=== PATIENT | male | born 1955 | race African-American/Black ===

== ENCOUNTER 2016-07-17 11:06 | Day surgery (SDC) | payer OTHER ==
[2016-07-15 14:19] LABS: HEMATOCRIT 43.6 % (40.0-51.0); HEMOGLOBIN 14.3 g/dL (13.6-17.8)
[2016-07-15 14:33] LABS: CALCIUM, SERUM 8.9 MG/DL (8.5-10.4); CHLORIDE, SERUM 103 MMOL/L (96-112); CO2 (CARBON DIOXIDE) 29 MMOL/L (24-34); CREATININE 0.81 MG/DL (0.70-1.30); GFR AFRICAN AMERICAN 112 ML/MIN (>=60); GFR NON AFRICAN AMERICAN 97 ML/MIN (>=60); GLUCOSE, SERUM 94 MG/DL (60-99); POTASSIUM, SERUM 4.3 MMOL/L (3.5-5.3); SODIUM, SERUM 141 MMOL/L (135-148)
[2016-07-15 14:35] LABS: BUN (BLOOD UREA NITROGEN) 9 MG/DL (6-23)
--- NOTE | ~2016-07-17 | OP ---
Record Of Operation [facility] [address] [place]. [address] NAME: AQUILES HECTOR : 57 STATUS : [facility]#: [id number] AGE: 61 ADM/REG DATE : 07/17/16 MR#: [id number] REPORT SERV DATE: 07/29/16 DICTATED BY: DATE: REPORT STATUS : Draft TRANSCRIBED BY: MODL DATE: 07/29/16 DATE OF PROCEDURE: 07/17/2016 PREOPERATIVE DIAGNOSIS: Painful hallux limitus/hallux abductovalgus deformity, right 1st MTPJ. POSTOPERATIVE DIAGNOSIS: Painful hallux limitus/hallux abductovalgus deformity, right 1st MTPJ. NAME OF OPERATION: Arthrodesis, right 1st MTPJ with Anuradha MTP fusion plate application. SURGEON: Lauri Cassidy DPM ANESTHESIA: General. HEMOSTASIS: Pneumatic ankle tourniquet. ESTIMATED BLOOD LOSS: Less than 5 mL. PROCEDURE IN DETAIL: The patient was brought to the operating room, placed on the operating table in supine position. The right foot was scrubbed, prepped, and draped in the usual aseptic manner. An Esmarch bandage utilized to exsanguinate the patient's right foot and the pneumatic ankle tourniquet inflated to 250 mmHg. Attention was then directed to the dorsal aspect of the 1st ray right foot where a 6 cm linear longitudinal incision was made. Incision deepened to the subcutaneous tissue using sharp and blunt dissection. Care was taken to identify and retract all vital neurovascular structures. A medial T-type capsulotomy was performed over the 1st MTPJ extending from the distal aspect of the proximal 1st phalanx to the mid shaft of the 1st metatarsal. The periosteum capsular structures were dissected free of their osseous attachments and reflected exposing the medial bony prominence of the 1st metatarsal at the operative site. Next, utilizing oscillating bone saw, the medial bony prominence was resected from the 1st metatarsal head and passed from the operative field. Attention then directed to the 1st interspace via the original skin incision. The subcutaneous tissues were dissected using tenotomy scissors. The adductor hallucis tendon was transected from its attachment to the base of the proximal phalanx laterally. The fibular sesamoid was freed of its osseous and capsular ligaments attachments distally, laterally, and proximally with excellent release of the lateral contracture on the hallux noted to be successfully executed. Attention was then directed to the head of the 1st metatarsal and the base of the proximal phalanx where the reamers and the Anuradha MTP fusion plate system was utilized to denude the bones from articular cartilage. Good bleeding subchondral bone was visualized after the utilization of the ramus on the base of the proximal phalanx and the head of the 1st metatarsal. The wound was then flushed with copious amounts of normal sterile saline. A K-wire was utilized to temporarily fixate the 1st MTPJ in a rectus position. Following standard AO principles and techniques over the Anuradha 1st MTP fusion plate system, the MTP fusion plate was placed over the 1st MTPJ with excellent compression noted. The placement of the MTP fusion plate was visualized under intraoperative fluoroscopy and noted to be in excellent position. The wound was then Record Of Operation [address] [place]. [address] NAME: AQUILES HECTOR : 57 STATUS : [facility] PAT#: [id number] AGE: 61 ADM/REG DATE : 07/17/16 MR#: [id number] REPORT SERV DATE: 07/29/16 DICTATED BY: DATE: REPORT STATUS : Draft TRANSCRIBED BY: MODL DATE: 07/29/16 flushed with copious amounts of normal sterile saline. The capsular tissue reapproximated and coapted utilizing 3-0 Vicryl. The subcutaneous tissues were reapproximated and coapted utilizing 4-0 Vicryl. The skin was reapproximated and coapted utilizing 5-0 Monocryl and 4- 0 nylon in horizontal mattress in simple interrupted suture technique. Postoperative block consisting of 20 mL of 0.5% Marcaine plain was injected around the operative site. The wound was then dressed with Xeroform gauze, ABD pad, 4x4s and 3-inch conform gauze wrap. Pneumatic ankle tourniquet was then deflated and a prompt hyperemic response noted to all digits of the right foot. An Tien wrap and walking boot was then applied. The patient tolerated the procedure and anesthesia well. He was transferred to recovery room. Vital signs stable and vascular status intact to all digits of the right foot. Following a period of postop monitoring, the patient discharged home on written and oral postop instructions. 1. Stay nonweightbearing on right foot with crutch assistance. 2. Ice and elevate right foot when at rest. 3. The patient to contact Dr. Cassidy for all postop followup care and if any problems arise. 4. The patient was prescribed antibiotics and pain medications. /THANH Lauri Cassidy DPM / [id number] CC: Lauri Cassidy DPM
[~2016-07-17 11:06] MED LIST: CARTIA PO; CARTIA XT300 MG/24 PO; COREG12 PO; DIL4TAB PO; GLUCPH PO; HCTZ25B PO; HYZAAR1 TAB PO; NEUR400 PO; OPANA ER40 MG PO; ULTRAM50 PO; VASOTEC20 MG PO; Z300 PO
== END 2016-07-17 21:34 | disposition home or self-care (01) ==
LOC: SDC 11:06
PROVIDERS: Podiatrist
PROC: 0SGM0ZZ (ICD-10-PCS; principal; 2016-07-17 12:45)
DX: M20.5X1 Other deformities of toe(s) (acquired), right foot (principal); I10 Essential (primary) hypertension; E11.9 Type 2 diabetes mellitus without complications; N40.0 Benign prostatic hyperplasia without lower urinary tract symptoms; G89.29 Other chronic pain; F17.290 Nicotine dependence, other tobacco product, uncomplicated; M06.9 Rheumatoid arthritis, unspecified; Z86.010 Personal history of colon polyps; K58.9 Irritable bowel syndrome, unspecified; Z96.652 Presence of left artificial knee joint; Z96.642 Presence of left artificial hip joint; Z79.899 Other long term (current) drug therapy; Z79.84 Long term (current) use of oral hypoglycemic drugs; Z98.890 Other specified postprocedural states
CPT/HCPCS: 76000; 80048; 82962; 85014; 85018; 93005; A9270-GY; C1713; J0360; J0690; J2250; J2370; J2405; J2710; J3010; J3370